=== PATIENT | female | born 1965 | race Caucasian/White ===

== ENCOUNTER 2021-12-30 07:24 | Day surgery (SDC) | payer OTHER ==
[2021-12-27 14:35] LABS: Absolute Lymphocytes (CBC) 2.3 K/uL (0.7-4.9); Hematocrit 41.3 % (36.0-45.0); Lymphocytes % 39.9 % (15.3-44.8); MCV 87.6 fL (80-100); MPV 8.1 fL (7.6-11.3); RBC Red Blood Cell Count 4.71 M/uL (3.86-4.86)
[2021-12-27 14:44] LABS: Potassium 4.2 mmol/L (3.5-5.1)
--- NOTE | 2021-12-27 14:52 | RAD REPORT ---
EXAM DESCRIPTION: Samantha Oviedo (2 Views)12/27/2021 2:21 pm CLINICAL HISTORY: Preop for colonoscopy. Hypertension COMPARISON: 2020 FINDINGS: The lungs appear clear of acute infiltrate. The heart is normal size IMPRESSION: No acute abnormalities displayed
--- NOTE | 2021-12-28 12:36 | EKG ---
Test Date: 2021-12-27 Test Time: 14:04:28 Teletype Technician: SASHA MEASUREMENT RESULTS: Intervals: Rate: 73 WY: 144 QRSD: 92 QT: 398 QTc: 438 [place]: P: 49 WY: 144 QRS: 51 T: 29 INTERPRETIVE STATEMENTS: Normal sinus rhythm Normal ECG No previous ECG available for comparison Electronically Signed On 12-28-21 12:35:43 CDT by Dorian Hand
[2021-12-30] MEDS ORDERED: NA CHLORIDE 0.9% 1,000 ML ONE (07:42)
[2021-12-30] MEDS ORDERED: propofoL 200 MG/20 ML VIAL IV ONE ×3 (09:06→09:50)
[2021-12-30] MEDS ORDERED: LIDOCAINE 1% MPF 10 ML AMPULE ONE (09:07)
[2021-12-30] MEDS ORDERED: EPINEPHRINE/PF 1 MG/ML AMP ONE (09:23)
[2021-12-30 10:49] VITALS: BP 110/90; TEMP 97.8; O2SAT 98
== END 2021-12-30 10:41 | disposition home or self-care (01) ==
LOC: OR 07:24
PROVIDERS: ATTEND Surgery
PROC: 0DJD8ZZ Inspection of Lower Intestinal Tract, Via Natural or Artificial Opening Endoscopic (ICD-10-PCS; principal; 2021-12-30 08:30)
DX: Z12.11 Encounter for screening for malignant neoplasm of colon (principal); Z80.0 Family history of malignant neoplasm of digestive organs; E11.9 Type 2 diabetes mellitus without complications
CPT/HCPCS: 93005; 85025; 80048; 36415; 82947; 71046; 45378; J2704 ×3; J7030; J0171